=== PATIENT | female | born 1960 | race African-American/Black ===

== ENCOUNTER 2017-09-08 11:30 | Emergency (ER) | payer OTHER ==
[2017-09-08] MEDS ORDERED: predniSONE 20 MG TAB ONE (12:02)
[2017-09-08] MEDS ORDERED: Nitroglycerin 2% Ointment 1 INCH/1 GM Packet ONE (12:11)
--- NOTE | 2017-09-08 12:21 | RAD ---
FRONTAL RADIOGRAPH CHEST: Date: 09-08-17 Comparison: 06-28-17 History: Wheezing. FINDINGS: No pneumothorax or pleural fluid. No focal consolidation or alveolar edema. Heart and mediastinal co ntours are stable. IMPRESSION: No acute findings. POS: [facility]
[2017-09-08 12:34] LABS: Hematocrit 40.4 % (36.0-47.0); Mean Platelet Volume 7.8 fL (7.4-10.4); Neutrophil 30 % (42-75); Red Blood Cell (RBC) Count 4.21 mill/uL (4.20-5.40); White Blood Cell (WBC) Count 6.9 thou/uL (4.8-10.8)
[2017-09-08 12:41] LABS: ALT (SGPT) 24 U/L (8-55); AST (SGOT) 27 U/L (5-34); Alkaline Phosphatase 60 U/L (40-150); Anion Gap 14 mmol/L (10-20); BUN (Urea Nitrogen) 16 mg/dL (9.8-20.1); Bilirubin, Total 0.6 mg/dL (0.2-1.2); CK (CPK) 107 U/L (29-168); Calc. Creatinine Clearance 0 mL/min (70-130); Calcium 10.4 mg/dL (7.8-10.44); Carbon Dioxide 22 mmol/L (22-29); Chloride 104 mmol/L (98-107); Estimated GFR-MDRD 58; Globulin 3.7 g/dL (2.4-3.5)
[2017-09-08 12:44] LABS: Troponin I Less than 0.010 ng/mL (< 0.028)
[2017-09-08] MEDS ORDERED: Albuterol Sulfate 2.5 mg/0.5 ml Neb ONE ×2 (13:24)
[2017-09-08] MEDS ORDERED: Albuterol Sulfate 2.5 mg/3 ml Neb ONE (13:24)
--- NOTE | 2017-09-11 15:21 | EKG ---
Test Reason : [facility] [place] Blood Pressure : / mmHG Vent. Rate : 081 BPM Atrial Rate : 081 BPM P-R Int : 128 ms QRS Dur : 080 ms QT Int : 368 ms P-R-T Axes : 041 004 034 degrees QTc Int : 427 ms Normal sinus rhythm Possible Left atrial enlargement ST abnormality, possible digitalis effect No STEMI Abnormal ECG Confirmed by MARCELO VELASCO M.D. ([id number]), editor [employer] [place] ([id number]) on 09/11/2017 3:21:11 PM Referred By: Confirmed By:MARCELO VELASCO M.D.
== END 2017-09-08 14:42 | disposition home or self-care (01) ==
LOC: ERS 11:30
DX: J44.1 Chronic obstructive pulmonary disease with (acute) exacerbation (principal); F31.9 Bipolar disorder, unspecified; F20.9 Schizophrenia, unspecified; Z79.899 Other long term (current) drug therapy
CPT/HCPCS: 36415; 71010; 80053; 82550; 82553; 83880; 84484; 85025; 93005; 94640; 94664; 94760; J7506; J7611; J7620

== ENCOUNTER 2017-12-16 10:08 | Emergency (ER) | payer OTHER ==
--- NOTE | 2017-12-16 11:15 | RAD ---
PORTABLE CHEST: History: Chest pain Comparison: 09-08-17 FINDINGS: Heart size is within normal limits. There are arthrosclerotic changes of the aorta. The lungs are umu ar of infiltrates. IMPRESSION: No active intrathoracic disease. POS: [facility]
[2017-12-16] MEDS ORDERED: Albuterol Sulfate 2.5 mg/3 ml Neb ONE (11:26)
[2017-12-16 11:35] LABS: Hemoglobin 14.7 g/dL (12.0-16.0); Mean Corpuscular HGB CONC 33.8 g/dL (32.0-36.0); Mean Corpuscular Hemoglobin 33.1 pg (27.0-31.0); Mean Platelet Volume 7.8 fL (7.4-10.4); Platelet Count 220 thou/uL (130-400); RBC Distribution Width 11.5 % (11.5-14.5); Red Blood Cell (RBC) Count 4.43 mill/uL (4.20-5.40); White Blood Cell (WBC) Count 4.6 thou/uL (4.8-10.8)
[2017-12-16] MEDS ORDERED: Ketorolac Tromethamine 30 MG/ML VIAL ONE (11:41)
[2017-12-16 11:51] LABS: ALT (SGPT) 101 U/L (8-55); AST (SGOT) 139 U/L (5-34); Albumin 3.9 g/dL (3.5-5.0); Alkaline Phosphatase 69 U/L (40-150); Anion Gap 14 mmol/L (10-20); BUN (Urea Nitrogen) 14 mg/dL (9.8-20.1); Bilirubin, Total 0.8 mg/dL (0.2-1.2); Calc. Creatinine Clearance 0 mL/min (70-130); Calcium 10.6 mg/dL (7.8-10.44); Carbon Dioxide 25 mmol/L (22-29); Chloride 104 mmol/L (98-107); Estimated GFR-MDRD 65; Globulin 3.4 g/dL (2.4-3.5); Glucose 137 mg/dL (70-105); Lipase 50 U/L (8-78); Potassium 3.7 mmol/L (3.5-5.1); Protein, Total 7.3 g/dL (6.0-8.3); Sodium 139 mmol/L (136-145)
[2017-12-16 11:54] LABS: Lymphocytes 49 % (21-51); MDiff Complete? YES; Monocytes 14 % (0-10); Neutrophil 25 % (42-75); Reactive Lymphocytes 12 % (0-10)
[2017-12-16 11:56] LABS: CKMB 1.1 ng/mL (0-6.6); Troponin I Less than 0.010 ng/mL (< 0.028)
== END 2017-12-16 12:30 | disposition home or self-care (01) ==
LOC: ERS 10:08
DX: J40 Bronchitis, not specified as acute or chronic (principal); B19.20 Unspecified viral hepatitis C without hepatic coma; J45.909 Unspecified asthma, uncomplicated; F31.9 Bipolar disorder, unspecified; F20.9 Schizophrenia, unspecified
CPT/HCPCS: 71045; 80053; 82553; 83690; 84484; 85025; 93005; 94640; 96374; J1885; J7611; J7620

== ENCOUNTER 2019-01-03 15:45 | Emergency (ER) | payer OTHER ==
--- NOTE | 2019-01-03 17:54 | RAD ---
RIGHT FOOT THREE VIEWS: 01/03/19 HISTORY: Right foot pain. FINDINGS: Lisfranc joint alignment is anatomic. Plantar arch is maintained. No acute fracture or dislocation. M inimal osteophytosis. IMPRESSION: No acute osseous abnormalities are demonstrated. POS: [facility]
== END 2019-01-03 18:21 | disposition home or self-care (01) ==
LOC: ERS 15:45
DX: M79.671 Pain in right foot (principal); F31.9 Bipolar disorder, unspecified; F20.9 Schizophrenia, unspecified; J44.9 Chronic obstructive pulmonary disease, unspecified; Z79.891 Long term (current) use of opiate analgesic; Z79.51 Long term (current) use of inhaled steroids; Z79.899 Other long term (current) drug therapy; X50.9XXA Other and unspecified overexertion or strenuous movements or postures, initial encounter